=== PATIENT | female | born 1995 | race African-American/Black ===

== ENCOUNTER 2024-03-06 15:48 | Emergency (ER) | payer MEDICAID ==
[~2024-03-06] VITALS: Ht 157.5 cm; Wt 72.6 kg
[2024-03-06 16:12] VITALS: O2SAT 100
[2024-03-06] MEDS: TETANUS, DIPHTHERIA, PERTUSSIS VAC/PF 0.5ML (>10YR OLD) IM ONE (18:11)
[2024-03-06] MEDS: IBUPROFEN 400MG TABLET PO ONE (18:12)
[2024-03-06 18:27] VITALS: BP 122/63; PULSE 88; RESP 16; TEMP 98.6
== END 2024-03-06 18:52 | disposition home or self-care (01) ==
LOC: ER 15:48
DX: S61.215A Laceration without foreign body of left ring finger without damage to nail, initial encounter (principal); X58.XXXA Exposure to other specified factors, initial encounter; Y93.89 Activity, other specified; Y92.89 Other specified places as the place of occurrence of the external cause; Y99.8 Other external cause status; Z28.9 Immunization not carried out for unspecified reason
CPT/HCPCS: 81025; 90715; 90471; 99283; Z7610 ×2

== ENCOUNTER 2024-10-07 11:25 | Emergency (ER) | payer MEDICAID ==
[~2024-10-07] VITALS: Ht 157.5 cm; Wt 74.0 kg
[2024-10-07 11:30] VITALS: BP 132/94; PULSE 82; RESP 16; TEMP 98.7; O2SAT 100
== END 2024-10-07 13:25 | disposition home or self-care (01) ==
LOC: ER 11:38
DX: S63.502A Unspecified sprain of left wrist, initial encounter (principal); W19.XXXA Unspecified fall, initial encounter; X58.XXXA Exposure to other specified factors, initial encounter; Y93.89 Activity, other specified; Y92.89 Other specified places as the place of occurrence of the external cause; Y99.8 Other external cause status
CPT/HCPCS: 29125; 73100; 99283